=== PATIENT | male | born 1985 | race Caucasian/White ===

== ENCOUNTER 2024-06-16 20:28 | Emergency (ER) | payer SELFPAY ==
[~2024-06-16] VITALS: Ht 182.9 cm; Wt 75.0 kg
[2024-06-16 20:33] VITALS: O2SAT 97
[2024-06-16 20:52] VITALS: BP 119/61; PULSE 106; RESP 18; TEMP 37.00296; O2SAT 98
== END 2024-06-17 00:19 | disposition home or self-care (01) ==
LOC: ER 20:28
DX: F10.129 Alcohol abuse with intoxication, unspecified (principal); F12.10 Cannabis abuse, uncomplicated; Y90.9 Presence of alcohol in blood, level not specified
CPT/HCPCS: 99283